=== PATIENT | female | born 1960 | race Asian ===

== ENCOUNTER 2022-10-16 09:20 | Emergency (ER) | payer MEDICAID ==
[~2022-10-16] VITALS: Ht 154.9 cm; Wt 54.5 kg
[2022-10-16] MEDS ORDERED: ACYCLOVIR 200 MG CAPSULE PO ONE (10:15)
[2022-10-16] MEDS ORDERED: PredniSONE 20 MG TABLET PO ONE (10:15)
[2022-10-16 13:38] VITALS: BP 142/75
[2022-10-16] MEDS ORDERED: PRED-554 PO ×2 (14:24→14:53)
[2022-10-16] MEDS ORDERED: ACYC200C24 PO ×2 (14:25→14:53)
== END 2022-10-16 15:11 | disposition home or self-care (01) ==
LOC: EMS 09:23
DX: R51.9 Headache, unspecified (principal); E11.9 Type 2 diabetes mellitus without complications; G51.0 Bell's palsy
CPT/HCPCS: 99284; 70450; J7512